=== PATIENT | male | born 1960 | race African-American/Black ===

== ENCOUNTER 2017-06-07 10:52 | Day surgery (SDC) | payer OTHER ==
[2017-06-06 11:18] VITALS: BMI 25.1
[~2017-06-07 10:52] MED LIST: LACTATED RINGERS 1,000 ML IV SCH
[2017-06-07 11:35] VITALS: RESP 16; TEMP 97.7
[2017-06-07] MEDS ORDERED: LIDOCAINE 1% 20 ML VIAL (10MG/ML) FOR IV START INTRADERMA ONE ×2 (11:40→11:52)
[2017-06-07] MEDS ORDERED: PROPOFOL 10 MG/ML 20 ML VIAL IV ONE (12:32)
[2017-06-07] MEDS ORDERED: LIDOCAINE 1% INJ 10MG/ML (20 ML MDV) ONE (12:32)
--- NOTE | 2017-06-07 13:19 | P.PCN ---
Date of Procedure: 06/07/17 Procedure(s) Performed: Procedure: Colonoscopy and polypectomy. Preoperative diagnosis: Change in bowel habits history of polyps. Postoperative diagnosis: 1. Sigmoid diverticulosis with no evidence of acute diverticulitis or strictures. 2. Small polyps snared but no large polyps or cancer. Preparation: HalfLytely prep. Sedation: Was provided by anesthesia. Brief clinical history: The patient is a 56-year-old male who is scheduled for this evaluation because of history of polyps. His last exam was around 6 or 7 years ago and he had 3 polyps removed. He reported episodes of diarrhea and occasional intermittent bleeding. He had prior hemorrhoid surgery. Otherwise, he has no abdominal complaints or anemia. Procedure: With the patient on his left lateral decubitus position and after informed consent and adequate sedation, the perianal area was inspected and it did not show any fissures or fistulas. There were no masses felt on digital rectal examination. The Olympus CFQ 160L video colonoscope was then inserted in the rectum in the usual fashion and advanced to the cecum. There was a few diverticular orifices seen scattered in the distal sigmoid but there was no evidence of acute diverticulitis or strictures. The mucosa appeared healthy. There was a small polyp around the hepatic flexure and two in the proximal sigmoid that were snared. There were no large polyps or cancer. I retroflexed the endoscope in the rectum before the endoscope was withdrawn. The patient tolerated the procedure well. Plan: The patient was reassured. Discussed dietary measures. He will follow up with you as planned and I recommended repeat exam in 5 years.
[2017-06-07 13:34] VITALS: BP 163/106; PULSE 75
== END 2017-06-07 14:01 | disposition home or self-care (01) ==
LOC: ORWHC2ENDO 10:52
DX: D12.3 Benign neoplasm of transverse colon (principal); D12.5 Benign neoplasm of sigmoid colon; K57.30 Diverticulosis of large intestine without perforation or abscess without bleeding; I10 Essential (primary) hypertension; E78.5 Hyperlipidemia, unspecified; M06.9 Rheumatoid arthritis, unspecified; E73.9 Lactose intolerance, unspecified; F17.200 Nicotine dependence, unspecified, uncomplicated; Z91.013 Allergy to seafood; Z86.010 Personal history of colon polyps
CPT/HCPCS: 45385; 88305; J2001; J2704

== ENCOUNTER → 2017-07-28 | Outpatient (CLI) | payer OTHER ==
--- NOTE | 2017-07-28 12:58 | CT ---
EXAMINATION TYPE: CT brain wo con DATE OF EXAM: 07/28/2017 COMPARISON: NONE INDICATION: Fall down stairs and hit head on concrete at bottom of stairs DLP: 1147 mGycm, Automated exposure control for dose reduction was used. CONTRAST: None CT of the brain is performed utilizing 3 mm thick sections through the posterior fossa and 3 mm thick sections through the remaining calvarium. Study is performed within 24 hours of arrival to the hosp [facility]. No abnormal hyperdensity is present to suggest an acute intracranial hemorrhage. No mass lesion is evident. No acute infarcts are evident. Ventricles and sulci are appropriate for the patient age. Mild mucosal thickening is within the right maxillary sinus. Remaining paranasal sinuses and ethmoid air cells are clear. IMPRESSIONS: 1. Normal CT Brain
== END | disposition home or self-care (01) ==
LOC: RADCTMAIN 12:28
PROVIDERS: ATTEND Internal Medicine
DX: R11.2 Nausea with vomiting, unspecified (principal); G44.309 Post-traumatic headache, unspecified, not intractable
CPT/HCPCS: 70450

== ENCOUNTER 2017-08-03 18:59 | Emergency (ER) | payer OTHER ==
[2017-08-03 19:06] VITALS: BP 175/110; PULSE 92; RESP 22; TEMP 97.8
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
== END 2017-08-03 19:25 | disposition left against medical advice (07) ==
LOC: EC 18:59
DX: S00.212A Abrasion of left eyelid and periocular area, initial encounter (principal); R40.2142 Coma scale, eyes open, spontaneous, at arrival to emergency department; R40.2252 Coma scale, best verbal response, oriented, at arrival to emergency department; R40.2362 Coma scale, best motor response, obeys commands, at arrival to emergency department; I10 Essential (primary) hypertension; M06.9 Rheumatoid arthritis, unspecified; F41.9 Anxiety disorder, unspecified; F31.9 Bipolar disorder, unspecified; F17.200 Nicotine dependence, unspecified, uncomplicated; Z79.1 Long term (current) use of non-steroidal anti-inflammatories (NSAID); Z79.899 Other long term (current) drug therapy; Z91.011 Allergy to milk products; Z91.013 Allergy to seafood; Y04.8XXA Assault by other bodily force, initial encounter; Y92.89 Other specified places as the place of occurrence of the external cause
CPT/HCPCS: 99283

== ENCOUNTER → 2017-08-24 | Outpatient (CLI) | payer OTHER ==
[2017-08-24 09:55] LABS: HCT 39.9 % (39.0-53.0); MCH 30.7 pg (25.0-35.0); MCHC 32.5 g/dL (31.0-37.0); MCV 94.3 fL (80.0-100.0); Mean Platelet Volume 9.1; Platelet Count 192 k/uL (150-450); RBC 4.23 m/uL (4.30-5.90); RDW 13.1 % (11.5-15.5); WBC 7.9 k/uL (3.8-10.6)
--- NOTE | 2017-08-24 10:38 | US ---
EXAMINATION TYPE: US liver DATE OF EXAM: 08/24/2017 COMPARISON: NONE CLINICAL HISTORY: Z86.19 Other infectious disease. Hep C EXAM MEASUREMENTS: Liver Length: 15.4 cm Gallbladder Wall: 0.2 cm CBD: 0.5 cm Right Kidney: 12.1 x 5.9 x 5.5 cm Pancreas: visualized portions wnl, tail obscured by overlying midline bowel gas Liver: wnl no discrete masses are evident. Gallbladder: 2 gallbladder folds seen, one at neck and one at fundus, thin septations seen superior to fundal fold: possible additional folds vs. other etiology, wall measures wnl Evidence for sonographic Oropeza's sign: no CBD: visualized portions wnl, limited at pancreas head by overlying bowel gas Right Kidney: multiple cysts with largest simple cyst in the mid pole measuring 5.8 x 5.0 x 4.7cm IMPRESSION: 1. Normal hepatic ultrasound. 2. Large mid right renal cyst.
[2017-08-24 11:06] LABS: Bilirubin, Delta 0.3 mg/dL (0.0-0.2); Bilirubin,Unconjugated 0.6 mg/dL (0.0-1.1); Total Bilirubin 0.9 mg/dL (0.2-1.3); Total Protein 7.4 g/dL (6.3-8.2)
[2017-08-26 15:06] LABS: HCV Quant Log 6.76 (<1.08)
== END | disposition home or self-care (01) ==
LOC: RADUSWWP 07:54
DX: Z09 Encounter for follow-up examination after completed treatment for conditions other than malignant neoplasm (principal); Z86.19 Personal history of other infectious and parasitic diseases
CPT/HCPCS: 76705; 80076; 85027; 87522

== ENCOUNTER → 2017-12-12 | Outpatient (CLI) | payer OTHER ==
[2017-12-12 15:27] LABS: Basophils % (A) 1 %; Eosinophils # (A) 0.1 k/uL (0-0.7); Eosinophils % (A) 1 %; HCT 40.8 % (39.0-53.0); HGB 13.5 gm/dL (13.0-17.5); Lymphocytes # (A) 1.9 k/uL (1.0-4.8); Lymphocytes % (A) 29 %; MCHC 33.1 g/dL (31.0-37.0); MCV 90.7 fL (80.0-100.0); Mean Platelet Volume 7.2; Monocytes # (A) 0.3 k/uL (0-1.0); Monocytes % (A) 4 %; Neutrophils # (A) 4.1 k/uL (1.3-7.7); Neutrophils % (A) 63 %; Platelet Count 137 k/uL (150-450); RDW 12.7 % (11.5-15.5); WBC 6.5 k/uL (3.8-10.6)
[2017-12-12 15:37] LABS: Prothrombin Time 9.9 sec (9.0-12.0)
[2017-12-12 15:50] LABS: Albumin 4.1 g/dL (3.5-5.0); Bilirubin, Delta 0.2 mg/dL (0.0-0.2); Bilirubin,Unconjugated 0.2 mg/dL (0.0-1.1); Total Bilirubin 0.4 mg/dL (0.2-1.3); Total Protein 7.2 g/dL (6.3-8.2)
[2017-12-13 14:05] LABS: Hepatits C Virus RNA DETECTED (Not detected); Hepatits C Virus RNA, Quant 12 IU/mL (<12); LOG HCV IU/mL 1.08 (<1.08)
== END | disposition home or self-care (01) ==
LOC: LABWHC1 14:38
PROVIDERS: ATTEND Physician Assistant
DX: B18.2 Chronic viral hepatitis C (principal)
CPT/HCPCS: 36415; 80076; 85025; 85610; 87522

== ENCOUNTER 2018-02-20 09:35 | Emergency (ER) | payer OTHER ==
[2018-02-20 09:39] VITALS: RESP 18; TEMP 98.2
[2018-02-20] MEDS ORDERED: KETOROLAC 60 MG/2 ML VIAL IM STA (09:46)
[2018-02-20] MEDS ORDERED: ORPHENADRINE 30 MG/ML 2 ML VIAL IM STA (09:46)
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
--- NOTE | 2018-02-20 10:30 | XR ---
EXAMINATION TYPE: XR lumbar spine 2 or 3V DATE OF EXAM: 02/20/2018 COMPARISON: NONE HISTORY: 57-year-old male with pain TECHNIQUE: 3 views FINDINGS: 5 lumbar type vertebral bodies. Facet arthropathy mid to lower lumbar spine. Bulky endplate spondylos is especially anteriorly thoracolumbar junction region and upper to mid lumbar spine. Minimal anterio r wedging at T12. Otherwise, vertebral body heights are maintained. Alignment is maintained though wi th straightening of the normal lumbar lordosis. IMPRESSION: 1. Minimal anterior wedging of T12 compatible with an age indeterminate compression injury, suspected chronic given some sclerosis here. Clinically correlate. 2. Facet arthropathy mid to lower lumbar spine and moderate anterior endplate spondylosis thoracolumb ar junction and upper to mid lumbar spine.
[2018-02-20 11:06] VITALS: BP 135/80; PULSE 78
== END 2018-02-20 11:06 | disposition home or self-care (01) ==
LOC: EC 09:35
DX: M54.41 Lumbago with sciatica, right side (principal); M48.54XA Collapsed vertebra, not elsewhere classified, thoracic region, initial encounter for fracture; I10 Essential (primary) hypertension; M06.9 Rheumatoid arthritis, unspecified; F17.200 Nicotine dependence, unspecified, uncomplicated; Z91.013 Allergy to seafood; Z91.018 Allergy to other foods; Z79.1 Long term (current) use of non-steroidal anti-inflammatories (NSAID); Z79.891 Long term (current) use of opiate analgesic; Z79.899 Other long term (current) drug therapy; X50.0XXA Overexertion from strenuous movement or load, initial encounter; Y92.69 Other specified industrial and construction area as the place of occurrence of the external cause
CPT/HCPCS: 72100; 99283; 96372 ×2; J2360; J1885

== ENCOUNTER → 2018-02-21 | Outpatient (CLI) | payer OTHER ==
[2018-02-21 11:28] LABS: Albumin 4.1 g/dL (3.5-5.0); Bilirubin, Delta 0.5 mg/dL (0.0-0.2); Total Bilirubin 0.5 mg/dL (0.2-1.3); Total Protein 7.6 g/dL (6.3-8.2)
[2018-02-21 11:29] LABS: Basophils % (A) 0 %; Eosinophils # (A) 0.1 k/uL (0-0.7); Eosinophils % (A) 0 %; HCT 42.8 % (39.0-53.0); HGB 13.4 gm/dL (13.0-17.5); Lymphocytes % (A) 5 %; MCH 29.1 pg (25.0-35.0); MCHC 31.4 g/dL (31.0-37.0); MCV 92.4 fL (80.0-100.0); Monocytes # (A) 0.4 k/uL (0-1.0); Monocytes % (A) 2 %; Neutrophils % (A) 92 %; Platelet Count 151 k/uL (150-450); RBC 4.63 m/uL (4.30-5.90); RDW 13.2 % (11.5-15.5); WBC 18.5 k/uL (3.8-10.6)
[2018-02-22 15:28] LABS: Hepatits C Virus RNA Not detected (Not detected); Hepatits C Virus RNA, Quant <12 IU/mL (<12); LOG HCV IU/mL <1.08 (<1.08)
== END | disposition home or self-care (01) ==
LOC: LABWHC1 10:52
PROVIDERS: ATTEND Physician Assistant
DX: K73.9 Chronic hepatitis, unspecified (principal)
CPT/HCPCS: 36415; 80076; 85025; 87522

== ENCOUNTER 2018-03-04 12:24 | Emergency (ER) | payer OTHER ==
[2018-03-04 12:46] VITALS: BP 152/104; PULSE 68; RESP 18; TEMP 98.5
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
== END 2018-03-04 13:23 | disposition home or self-care (01) ==
LOC: EC 12:24
DX: M79.5 Residual foreign body in soft tissue (principal); I10 Essential (primary) hypertension; M06.9 Rheumatoid arthritis, unspecified; F17.200 Nicotine dependence, unspecified, uncomplicated; Z79.1 Long term (current) use of non-steroidal anti-inflammatories (NSAID); Z79.899 Other long term (current) drug therapy; Z91.013 Allergy to seafood; Z91.011 Allergy to milk products
CPT/HCPCS: 10120; 99282

== ENCOUNTER 2018-08-15 17:11 | Emergency (ER) | payer OTHER ==
[2018-08-15 17:28] VITALS: BP 149/96; PULSE 78; RESP 18; TEMP 98.4
--- NOTE | 2018-08-15 17:52 | XR ---
Right knee 3 views. History pain. Comparison none. FINDINGS: I see no fracture nor dislocation. Joint spaces are fairly normal. There is no sign of knee joint eff usion. There is minor spurring on the patella. IMPRESSION: No acute abnormality of the right knee.
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
== END 2018-08-15 18:17 | disposition home or self-care (01) ==
LOC: EC 17:11
DX: M25.561 Pain in right knee (principal); I10 Essential (primary) hypertension; F17.200 Nicotine dependence, unspecified, uncomplicated; Z79.899 Other long term (current) drug therapy; Z91.013 Allergy to seafood; Z91.011 Allergy to milk products
CPT/HCPCS: 99283

== ENCOUNTER → 2018-09-04 | Outpatient (CLI) | payer OTHER ==
[2018-09-04 09:56] LABS: Basophils % (A) 0 %; Eosinophils # (A) 0.2 k/uL (0-0.7); Eosinophils % (A) 2 %; HCT 41.8 % (39.0-53.0); HGB 13.4 gm/dL (13.0-17.5); Lymphocytes # (A) 2.5 k/uL (1.0-4.8); Lymphocytes % (A) 32 %; MCH 28.9 pg (25.0-35.0); MCHC 32.1 g/dL (31.0-37.0); MCV 90.1 fL (80.0-100.0); Mean Platelet Volume 7.6; Monocytes # (A) 0.3 k/uL (0-1.0); Monocytes % (A) 4 %; Neutrophils # (A) 4.5 k/uL (1.3-7.7); Neutrophils % (A) 59 %; Platelet Count 156 k/uL (150-450); RBC 4.64 m/uL (4.30-5.90); RDW 13.8 % (11.5-15.5); WBC 7.7 k/uL (3.8-10.6)
[2018-09-04 16:23] LABS: Albumin/Globulin Ratio 1.82 (1.60-3.17); Bilirubin, Conjugated 0.2 mg/dL (0.20-0.40); Bilirubin,Unconjugated 0.5 mg/dL; Globulin 2.2 g/dL (1.6-3.3); Total Bilirubin 0.7 mg/dL (0.2-1.2); Total Protein 6.2 g/dL (6.2-8.2)
[2018-09-05 14:44] LABS: Hepatits C Virus RNA Not detected (Not detected); Hepatits C Virus RNA, Quant <12 IU/mL (<12); LOG HCV IU/mL <1.08 (<1.08)
== END | disposition home or self-care (01) ==
LOC: LABWHC1 09:04
PROVIDERS: ATTEND Physician Assistant
DX: B18.2 Chronic viral hepatitis C (principal)
CPT/HCPCS: 36415; 80076; 85025; 87522

== ENCOUNTER → 2020-08-14 | Outpatient (CLI) | payer OTHER ==
--- NOTE | 2020-08-14 08:37 | XR ---
EXAMINATION TYPE: XR lumbosacral spine min 4V DATE OF EXAM: 08/14/2020 CLINICAL HISTORY: Chronic low back pain. TECHNIQUE: Frontal, lateral, and oblique images of the lumbar spine are obtained. COMPARISON: Lumbar spine x-ray February 20, 2018 FINDINGS: There are 5 lumbar type vertebral bodies redemonstrated. The lumbar spine redemonstrate s table and satisfactory alignment without evidence of acute fracture or dislocation. Vertebral body he ights and disk space heights remain within normal limits. Persistent [id number] multilevel a nterior and lateral spurring. The oblique images are poorly positioned. Multilevel arthropathy mid t o lower lumbar spine redemonstrated. Mild overlying vascular calcification. IMPRESSION: As above. No significant interval change from prior.
[2020-08-14 10:06] LABS: ALT 14 U/L (4-49); AST 25 U/L (17-59); African American GFR (CKD) >90 (>60 ml/min/1.73 sqM); Alkaline Phosphatase 92 U/L (38-126); Anion Gap 8 mmol/L; Blood Urea Nitrogen 15 mg/dL (9-20); Calcium 9.8 mg/dL (8.4-10.2); Carbon Dioxide 28 mmol/L (22-30); Chloride 105 mmol/L (98-107); Cholesterol 201 mg/dL (<200); Glucose 100 mg/dL (74-99); HDL Cholesterol 34 mg/dL (40-60); LDL Cholesterol,Calculated 147 mg/dL (0-99); Non-African American GFR(CKD) 80 (>60 ml/min/1.73 sqM); Potassium 4.3 mmol/L (3.5-5.1); Sodium 141 mmol/L (137-145); Total Bilirubin 0.7 mg/dL (0.2-1.3); Total Protein 7.3 g/dL (6.3-8.2); Triglycerides 101 mg/dL (<150)
[2020-08-14 10:22] LABS: T4, Free (Free Thyroxine) 1.15 ng/dL (0.78-2.19)
== END | disposition home or self-care (01) ==
LOC: RADXRMAIN 08:12
PROVIDERS: ATTEND Internal Medicine
DX: M47.816 Spondylosis without myelopathy or radiculopathy, lumbar region (principal); E78.5 Hyperlipidemia, unspecified; I10 Essential (primary) hypertension; R06.02 Shortness of breath
CPT/HCPCS: 72110; 80053; 80061; 84439; 84443; 84480

== ENCOUNTER 2020-12-18 16:16 | Emergency (ER) | payer OTHER ==
[2020-12-18 16:27] VITALS: BP 139/89; PULSE 95; RESP 20; TEMP 97.7
[2020-12-18] MEDS ORDERED: methylPREDNISolone SOD SUCCI 125 MG/2 ML VIAL IM ONE (17:22)
[2020-12-18] MEDS ORDERED: KETOROLAC 15 MG/ML 1 ML VIAL IM STA (17:22)
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
--- NOTE | 2020-12-18 18:19 | XR ---
EXAMINATION TYPE: XR lumbar spine 2 or 3V DATE OF EXAM: 12/18/2020 CLINICAL HISTORY: pain TECHNIQUE: Three views of the lumbar spine are submitted. COMPARISON: None. FINDINGS: There are 5 lumbar type vertebral bodies identified. The lumbar spine shows satisfactory alignment w ithout evidence of acute fracture or dislocation. Vertebral body heights are within normal limits. Se maryjane multilevel degenerative disc disease and spondylosis with facet joint arthropathy. The overlying soft tissue appears unremarkable. IMPRESSION: No acute fracture or dislocation is seen in the lumbar spine. ICD 10 NO FRACTURE, INITIAL EVALUATION
== END 2020-12-18 18:43 | disposition home or self-care (01) ==
LOC: EC 16:16
DX: M54.16 Radiculopathy, lumbar region (principal); M06.9 Rheumatoid arthritis, unspecified; I10 Essential (primary) hypertension; F17.200 Nicotine dependence, unspecified, uncomplicated; E78.5 Hyperlipidemia, unspecified
CPT/HCPCS: 72100; 99283; 96372 ×2; J2930; J1885

== ENCOUNTER 2021-01-16 09:13 | Emergency (ER) | payer OTHER ==
[2021-01-16 09:22] VITALS: RESP 18; TEMP 97.8
[2021-01-16] MEDS ORDERED: MORPHINE SULFATE 4 MG/ML SYRINGE IVP STA (09:25)
[2021-01-16] MEDS ORDERED: KETOROLAC 15 MG/ML 1 ML VIAL IVP STA (09:25)
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
[2021-01-16 10:31] VITALS: BP 146/78; PULSE 80
== END 2021-01-16 10:54 | disposition home or self-care (01) ==
LOC: EC 09:13
DX: M54.16 Radiculopathy, lumbar region (principal); M54.40 Lumbago with sciatica, unspecified side
CPT/HCPCS: 96374; 96375; 99284

== ENCOUNTER 2022-03-05 04:47 | Emergency (ER) | payer OTHER ==
--- NOTE | 2022-03-05 05:18 | XR ---
EXAMINATION TYPE: XR knee complete LT DATE OF EXAM: 03/05/2022 COMPARISON: NONE HISTORY: Pain TECHNIQUE: 3 views FINDINGS: There is spurring at the tibial tubercle. I see no fracture nor dislocation. No sign of quirino nt effusion. There is minimal spurring of the femoral and tibial condyles. IMPRESSION: Minimal arthritic changes. No fracture.
[2022-03-05 05:52] VITALS: BP 135/89; PULSE 80; RESP 18; TEMP 97.9
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
== END 2022-03-05 06:51 | disposition home or self-care (01) ==
LOC: EC 04:47
DX: S89.92XA Unspecified injury of left lower leg, initial encounter (principal); E78.5 Hyperlipidemia, unspecified; I10 Essential (primary) hypertension; M06.9 Rheumatoid arthritis, unspecified; F17.200 Nicotine dependence, unspecified, uncomplicated; Z79.899 Other long term (current) drug therapy; Z91.013 Allergy to seafood; Z91.011 Allergy to milk products; X50.1XXA Overexertion from prolonged static or awkward postures, initial encounter; Y93.89 Activity, other specified; Y99.0 Civilian activity done for income or pay
CPT/HCPCS: 73562; 99283; L1830

== ENCOUNTER 2022-11-05 07:52 | Emergency (ER) | payer OTHER ==
[2022-11-05] MEDS ORDERED: ACET/COD 300 MG/30 MG STARTER PACK 6 TAB BTL PO STA (08:22)
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
[2022-11-05] MEDS ORDERED: AMOXIC-POT CLAV 875-125MG 1 EACH TAB PO STA (08:23)
[2022-11-05 09:30] VITALS: BP 154/89; PULSE 72; RESP 16; TEMP 98.1
== END 2022-11-05 09:30 | disposition home or self-care (01) ==
LOC: EC 07:52
DX: K04.7 Periapical abscess without sinus (principal); I10 Essential (primary) hypertension; F90.9 Attention-deficit hyperactivity disorder, unspecified type; F41.9 Anxiety disorder, unspecified; F31.9 Bipolar disorder, unspecified; F17.200 Nicotine dependence, unspecified, uncomplicated; F12.90 Cannabis use, unspecified, uncomplicated; Z79.899 Other long term (current) drug therapy; Z91.013 Allergy to seafood; Z91.011 Allergy to milk products
CPT/HCPCS: 99283

== ENCOUNTER 2022-11-10 15:18 | Emergency (ER) | payer OTHER ==
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
[2022-11-10 16:24] VITALS: RESP 16
--- NOTE | 2022-11-10 16:57 | XR ---
EXAMINATION TYPE: XR lumbar spine 2 or 3V DATE OF EXAM: 11/10/2022 COMPARISON: 12/18/2020 HISTORY: Pain TECHNIQUE: Three-view lumbar spine FINDINGS: There are 5 lumbar-type vertebral bodies. Pedicles are intact. Spondylosis is present. Vert ebral body heights are preserved. Disc heights are preserved. Alignment appears preserved. No signifi cant interval changes are evident. IMPRESSION: 1. Spondylosis. 2. No acute osseous abnormality
--- NOTE | 2022-11-10 17:02 | XR ---
EXAMINATION TYPE: XR knee complete LT DATE OF EXAM: 11/10/2022 COMPARISON: 03/05/2022 HISTORY: Chronic left knee pain TECHNIQUE: Three-view left knee FINDINGS: There is narrowing of the medial compartment joint space. Medial tibial plateau and femoral condylar spurring is present. Anterior superior patellar spurs present. No joint effusion is evident . Follow up exams can be performed 7-10 days from acute trauma for continued pain. IMPRESSION: 1. No acute osseous abnormalities left knee. 2. Mild osteoarthritic degenerative change predominantly within the medial compartment left knee
[2022-11-10] MEDS ORDERED: ORPHENADRINE 30 MG/ML 2 ML VIAL IM STA (19:18)
[2022-11-10] MEDS ORDERED: KETOROLAC 15 MG/ML 1 ML VIAL IM STA (19:18)
[2022-11-10] MEDS ORDERED: DEXAMETHASONE SOD PHOSPHATE 10 MG/ML 1 ML VIAL IM STA (19:18)
[2022-11-10] MEDS ORDERED: LIDOCAINE 5% PATCH TOPICAL SCH (19:30)
[2022-11-10 20:20] VITALS: BP 178/92; PULSE 61; TEMP 98.6
== END 2022-11-10 20:19 | disposition home or self-care (01) ==
LOC: EC 15:18
DX: S39.012A Strain of muscle, fascia and tendon of lower back, initial encounter (principal); G89.29 Other chronic pain; M25.562 Pain in left knee; I10 Essential (primary) hypertension; F17.200 Nicotine dependence, unspecified, uncomplicated; F12.90 Cannabis use, unspecified, uncomplicated; Z79.899 Other long term (current) drug therapy; Z91.013 Allergy to seafood; Z91.018 Allergy to other foods; X50.0XXA Overexertion from strenuous movement or load, initial encounter
CPT/HCPCS: 72100; 73562; 99283; 96372 ×3; J1100; J2360; J1885

== ENCOUNTER 2024-11-26 08:40 | Day surgery (SDC) | payer MEDICARE, OTHER ==
[2024-11-22 15:25] VITALS: BMI 28.1
[~2024-11-26 08:40] MED LIST changes: -LACTATED RINGERS 1,000 ML IV SCH; +LIDOCAINE 1% (10MG/ML) FOR IV START INTRADERMA PRN
[2024-11-26] MEDS: IV FLUID CONTINUATION 1,000 ML IV ONE (09:43)
[2024-11-26 09:54] VITALS: TEMP 97
[2024-11-26] MEDS: LACTATED RINGERS 1,000 ML IV SCH (10:03)
[2024-11-26] MEDS ORDERED: LIDOCAINE 1% INJ 10MG/ML (20 ML MDV) ONE (10:30)
[2024-11-26] MEDS ORDERED: PROPOFOL 10 MG/ML 20 ML VIAL IV ONE (10:30)
[2024-11-26 10:46] VITALS: RESP 16
[2024-11-26 11:00] VITALS: BP 115/85; PULSE 66
--- NOTE | 2024-11-26 20:49 | P.OP ---
Date of Procedure: 11/26/24 Preoperative Diagnosis: Screening Postoperative Diagnosis: Normal Colon Procedure(s) Performed: Colonoscopy Anesthesia: MAC Surgeon: Chuckie Morris Pathology: none sent Condition: stable Disposition: PACU Description of Procedure: After informed consent was obtained, the patient was placed in the left lateral position and the above medications were titrated with adequate sedation. Monitoring was provided throughout the entire procedure. Digital rectal exam was performed revealing normal sphincter tone and no external hemorrhoids. The Pentax video colonoscope was inserted into rectum and advanced under direct visualization, without difficulty, to the cecum, where the cecal strap, appendiceal orifice, and the ileocecal valve were identified. The quality of the preparation was good. The colonoscope was then withdrawn while carefully examining the mucosa. The colonic mucosa appeared normal with normal vascularity and haustral markings. No masses, polyps, AVM/s or diverticula were seen. On retroflexed view in the rectum, there are small internal hemorrhoids. The endoscope was removed and the procedure terminated. The patient tolerated the procedure well without complications.
== END 2024-11-26 11:31 | disposition home or self-care (01) ==
LOC: ORWHC2ENDO 08:40
PROVIDERS: ATTEND Surgery
DX: Z12.11 Encounter for screening for malignant neoplasm of colon (principal); Z80.0 Family history of malignant neoplasm of digestive organs
CPT/HCPCS: 45378; J2003; J2704